=== PATIENT | male | born 1995 | race Caucasian/White ===

== ENCOUNTER 2023-05-30 13:38 | Emergency (ER) | payer MEDICAID ==
[~2023-05-30] VITALS: Ht 187.9 cm; Wt 70.8 kg
[2023-05-30] MEDS ORDERED: ACETAMINOPHEN 325 MG TAB PO ONE (15:05)
[2023-05-30] MEDS ORDERED: IBUPROFEN 600 MG TAB PO ONE (15:05)
== END 2023-05-30 16:44 | disposition home or self-care (01) ==
LOC: ED 13:38
DX: J10.1 Influenza due to other identified influenza virus with other respiratory manifestations (principal); Z20.822 Contact with and (suspected) exposure to COVID-19; F41.9 Anxiety disorder, unspecified; F32.A Depression, unspecified; Z88.0 Allergy status to penicillin